=== PATIENT | male | born 1960 | race Caucasian/White ===

== ENCOUNTER 2017-02-22 04:28 | Emergency (ER) | payer SELFPAY ==
[~2017-02-22] VITALS: Ht 162.6 cm; Wt 77.0 kg
[2017-02-22 09:18] VITALS: BP 142/72
== END 2017-02-22 09:20 | disposition home or self-care (01) ==
LOC: ER 04:28
DX: S00.83XA Contusion of other part of head, initial encounter (principal); R51 Headache; R42 Dizziness and giddiness; M79.622 Pain in left upper arm; M25.521 Pain in right elbow; M25.562 Pain in left knee; R68.84 Jaw pain; R03.0 Elevated blood-pressure reading, without diagnosis of hypertension; W17.89XA Other fall from one level to another, initial encounter; Y93.39 Activity, other involving climbing, rappelling and jumping off; Y92.89 Other specified places as the place of occurrence of the external cause; Z87.891 Personal history of nicotine dependence; Z87.442 Personal history of urinary calculi; Z90.89 Acquired absence of other organs
CPT/HCPCS: 70100; 70450; 99284